=== PATIENT | female | born 1965 | race Hispanic/Latino ===

== ENCOUNTER 2016-12-06 03:40 | Emergency (ER) | payer OTHER ==
[~2016-12-06] VITALS: Ht 147.3 cm; Wt 72.6 kg
[2016-12-06] MEDS ORDERED: ONDANSETRON ODT8 MG PO (05:09)
== END 2016-12-06 05:24 | disposition home or self-care (01) ==
LOC: ED 03:40
DX: K29.70 Gastritis, unspecified, without bleeding (principal); M54.6 Pain in thoracic spine
CPT/HCPCS: 80053; 81001; 83690; 84703; 85025; 96361; 96374; 96375; 99283; J1885; J2405; J7040